=== PATIENT | female | born 2000 | race Caucasian/White ===

== ENCOUNTER 2021-10-12 00:49 | Emergency (ER) | payer BC, SELFPAY ==
[2021-10-12] MEDS ORDERED: Ketorolac Tromethamine 30 MG/ML VIAL ONE (01:27)
[2021-10-12] MEDS ORDERED: Lidocaine 1% w/Epinephrine 1:100K 20 ML VIAL ONE (01:27)
[2021-10-12] MEDS ORDERED: Fentanyl 100 MCG/2 ML VIAL ONE (01:27)
== END 2021-10-12 01:59 | disposition home or self-care (01) ==
LOC: CSHERS 00:49
DX: L05.01 Pilonidal cyst with abscess (principal)
CPT/HCPCS: 10080; 96374; 96375; J1885; J3010